=== PATIENT | male | born 1970 | race Two or more races ===

== ENCOUNTER 2016-11-23 18:44 | Emergency (ER) | payer OTHER ==
[2016-11-23 19:03] VITALS: BP 130/75
[2016-11-23] MEDS ORDERED: LIDOCAINE 5% (700 MG) TRANSDERMAL ADH..PATCH TP ONE (19:34)
[2016-11-23] MEDS ORDERED: NAPROXEN 250 MG TABLET PO ONE (19:34)
--- NOTE | 2016-11-23 19:35 | ER Document Report ---
ED General Pain - General Chief Complaint: Back Pain Stated Complaint: BACK, HEAD PAIN, NUMBNESS Time Seen by Provider: 11/23/16 19:13 Notes: The patient is a 46-year-old male, past medical history chronic back pain, L3 radiculopathy, DDD, peripheral neuropathy, presents with several weeks of worsening bilateral back spasm and tingling into his left toe. He saw his neurologist who performed acupuncture before the symptoms all started. He has a copy of his MRI of his C-spine and lumbar spine, which showed degenerative disc disease and L3 radiculopathy. Patient denies saddle anesthesia, change in bowel or bladder, history of IVDA, fevers, chest pain, nausea or vomiting. TRAVEL OUTSIDE OF THE [place] IN LAST 30 DAYS: No - Related Data Allergies/Adverse Reactions: acetaminophen [From Tylenol] Allergy (Unknown, Verified 11/23/16 19:00) morphine [Morphine] Allergy (Unknown, Verified 11/23/16 19:00) Past Medical History - General Information source: Patient - Social History Smoking Status: Current Every Day Smoker Family History: None Patient has suicidal ideation: No Patient has homicidal ideation: No Renal/ Medical History: Denies: Hx Peritoneal Dialysis Musculoskeltal Medical History: Reports Hx Musculoskeletal Deformity, Reports Hx Musculoskeletal Trauma - Immunizations Immunizations up to date: Yes Hx Diphtheria, Pertussis, Tetanus Vaccination: Yes Review of Systems - Review of Systems Notes: REVIEW OF SYSTEMS: CONSTITUTIONAL: -fevers, -chills EENT: -eye pain, -difficulty swallowing, -nasal congestion CARDIOVASCULAR:-chest pain, -syncope. RESPIRATORY: -cough, -SOB GASTROINTESTINAL: -abdominal pain, - nausea, -vomiting, -diarrhea GENITOURINARY: -dysuria, -hematuria MUSCULOSKELETAL: +back pain, -neck pain SKIN: -rash or skin lesions. HEMATOLOGIC: -easy bruising or bleeding. LYMPHATIC: -swollen, enlarged glands. NEUROLOGICAL: -altered mental status or loss of consciousness, -headache, + peripheral neuropathy PSYCHIATRIC: -anxiety, -depression. ALL OTHER SYSTEMS REVIEWED AND NEGATIVE. Physical Exam - Vital signs Vitals: Temp Pulse Resp BP Pulse Ox 98 F 84 18 130/75 H 100 11/23/16 19:00 11/23/16 19:00 11/23/16 19:00 11/23/16 19:00 11/23/16 19:00 - Notes Notes: PHYSICAL EXAMINATION: GENERAL: Well-appearing, well-nourished and in no acute distress. HEAD: Atraumatic, normocephalic. EYES: Pupils equal round and reactive to light, extraocular movements intact, sclera anicteric, conjunctiva are normal. ENT: nares patent, oropharynx clear without exudates. Moist mucous membranes. NECK: Normal range of motion, supple without lymphadenopathy LUNGS: Breath sounds clear to auscultation bilaterally and equal. No wheezes rales or rhonchi. HEART: Regular rate and rhythm without murmurs ABDOMEN: Soft, nontender, normoactive bowel sounds. No guarding, no rebound. No masses appreciated. EXTREMITIES: Normal range of motion, no pitting or edema. No cyanosis. Strong distal pulses. BACK: tenderness over right lower paraspinal muscles, no midline tenderness NEUROLOGICAL: Cranial nerves grossly intact. Normal speech. Normal motor exams. PSYCH: Normal mood, normal affect. SKIN: Warm, Dry, normal turgor, no rashes or lesions noted. Course - Re-evaluation Re-evalutation: Patient has no red flag signs for low back pain at this time. He has a copy of his MRI results which are consistent with his exam findings. He sees a neurologist and is scheduled for pain management at the [facility]. No emergent condition exists at this time. Given return precautions and he understands. - Vital Signs Vital signs: Temp Pulse Resp BP Pulse Ox 98 F 84 18 130/75 H 100 11/23/16 19:00 11/23/16 19:00 11/23/16 19:00 11/23/16 19:00 11/23/16 19:00 Discharge - Discharge Clinical Impression: Radicular pain Chronic back pain Qualifiers: Back pain location: low back pain Back pain laterality: bilateral Sciatica presence: with sciatica Sciatica laterality: sciatica of right side Qualified Code(s): M54.41 - Lumbago with sciatica, right side Condition: Stable Disposition: HOME, SELF-CARE Additional Instructions: LOW BACK PAIN: Three out of every four people will have an episode of disabling back pain during their lifetime. Most commonly the pain is due to straining of the muscles and ligaments in the low back. Usual treatment includes: (1) Rest on a firm surface. Avoid lying on your stomach. (2) Ice pack the painful area. After a few days, gentle heat may be used intermittently to relax the area, or ice packs can be continued. (3) Medication may be needed -- muscle relaxers and antiinflammatory medicines are commonly used. (4) As the back improves, exercises are prescribed to strengthen the back and abdominal muscles. Your doctor will advise you on the proper care for your back at each stage in your recovery. You may be better in a few days -- or healing may take several weeks. If new symptoms of a "herniated disc" (radiation of pain, numbness, or tingling down the back of the leg or weakness in the leg) occur, you should be re-examined. Further testing may be necessary. ICE PACKS: Apply ice packs frequently against the painful area. Many different schedules are recommended, such as "20 minutes on, 20 minutes off" or "one hour ice, two hours rest." If you need to work, you may need to go longer between ice treatments. You should plan to have the area ice packed AT LEAST one fourth of the time. The ice should be applied over the wrap, tape, or splint, or over a layer of cloth -- not directly against the skin. Some ice bags have a built-in cloth and can be put directly on the skin. WARM PACKS: After approximately two days, apply gentle heat (such as a heating pad or hot water bottle) for about 20 to 30 minutes about every two hours -- at least four times daily. Warmth and elevation will help you make a more rapid recovery , and will ease the pain considerably. Do not use HOT heat, and never apply heat for longer than 30 minutes. The continuous heat can invisibly damage skin and muscles -- even when no burn is seen on the surface. Damaged muscles can make you MORE sore. FOLLOW-UP CARE: If you have been referred to a physician for follow-up care, call the physician s office for an appointment as you were instructed or within the next two days. If you experience worsening or a significant change in your symptoms, notify the physician immediately or return to the Emergency Department at any time for re-evaluation. Prescriptions: Lidocaine [Lidoderm 5% (700 mg) Transdermal Patch] 1 patch TP DAILY #30 adh..patch
== END 2016-11-23 20:11 | disposition home or self-care (01) ==
LOC: ER 18:44
DX: M54.41 Lumbago with sciatica, right side (principal); G89.29 Other chronic pain; M54.9 Dorsalgia, unspecified; F17.200 Nicotine dependence, unspecified, uncomplicated; Z88.6 Allergy status to analgesic agent
CPT/HCPCS: 99283

== ENCOUNTER 2018-01-26 19:20 | Emergency (ER) | payer OTHER ==
[2018-01-26] MEDS ORDERED: ONDANSETRON HCL INJ/PF 4 MG/2 ML SDV IV ONE (20:47)
[2018-01-26] MEDS ORDERED: FENTANYL CITRATE INJ/PF 100 MCG/2 ML AMPUL IV ONE (20:47)
[2018-01-26] MEDS ORDERED: NORMAL SALINE 1000 ML 1,000 ML IV ONE ×2 (20:47→23:49)
--- NOTE | 2018-01-26 20:49 | ER Document Report ---
ED Medical Screen (RME) - General Chief Complaint: Nausea/Vomiting/Diarrhea Stated Complaint: VOMITING,DIARRHEA Time Seen by Provider: 01/26/18 20:47 Notes: 47 years old male presents today with 3 day history of nausea vomiting diarrhea many times. Now having general body aches and pain chills and fever. Denies any cough. Denies any other constitutional symptoms. TRAVEL OUTSIDE OF THE [place] IN LAST 30 DAYS: No - Related Data Allergies/Adverse Reactions: acetaminophen [From Tylenol] Allergy (Unknown, Verified 11/23/16 19:00) morphine [Morphine] Allergy (Unknown, Verified 11/23/16 19:00) Past Medical History Renal/ Medical History: Denies: Hx Peritoneal Dialysis Musculoskeltal Medical History: Reports Hx Musculoskeletal Deformity, Reports Hx Musculoskeletal Trauma - Immunizations Immunizations up to date: Yes Hx Diphtheria, Pertussis, Tetanus Vaccination: Yes Physical Exam - Vital signs Vitals: Temp Pulse Resp BP Pulse Ox 98.6 F 61 17 140/79 H 96 01/26/18 19:36 01/26/18 19:36 01/26/18 19:36 01/26/18 19:36 01/26/18 19:36 Course - Vital Signs Vital signs: Temp Pulse Resp BP Pulse Ox 98.6 F 61 17 140/79 H 96 01/26/18 19:36 01/26/18 19:36 01/26/18 19:36 01/26/18 19:36 01/26/18 19:36 Doctor's Discharge - Discharge Referrals: MARIA ELENA AGUILERA FNP [Primary Care Provider] - Follow up as needed
[2018-01-26 21:19] LABS: ABSOLUTE LYMPHOCYTES (AUTO) 1.7 10^3/uL (0.5-4.7); ABSOLUTE MONOCYTES (AUTO) 1.2 10^3/uL (0.1-1.4); ABSOLUTE NEUT (AUTO) 12.6 10^3/uL (1.7-8.2); BASOPHILS % (AUTO) 0.3 % (0-2); HEMATOCRIT 47.5 % (37.9-51.0); HEMOGLOBIN 16.3 g/dL (13.5-17.0); LYMPHOCYTES % (AUTO) 10.8 % (13-45); MEAN CORPUSCULAR HEMOGLOBIN 30.2 pg (27.0-33.4); MEAN CORPUSCULAR HGB CONC 34.2 g/dL (32.0-36.0); MEAN CORPUSCULAR VOLUME 88 fl (80-97); PLATELET COUNT 272 10^3/uL (150-450); RED BLOOD COUNT 5.37 10^6/uL (4.35-5.55); RED CELL DISTRIBUTION WIDTH 13.9 % (11.5-14.0); SEGMENTED NEUTROPHILS % (AUTO) 80.9 % (42-78); TOTAL CELLS COUNTED % (AUTO) 100 %; WHITE BLOOD COUNT 15.6 10^3/uL (4.0-10.5)
[2018-01-26 21:36] LABS: ALANINE AMINOTRANSFERASE 27 U/L (21-72); ALKALINE PHOSPHATASE 63 U/L (38-126); ANION GAP 16 (5-19); ASPARTATE AMINO TRANSFERASE 18 U/L (17-59); BILIRUBIN,DIRECT 0.4 mg/dL (0.0-0.4); BILIRUBIN,TOTAL 0.6 mg/dL (0.2-1.3); BLOOD UREA NITROGEN 17 mg/dL (7-20); CALCIUM 10.3 mg/dL (8.4-10.2); CARBON DIOXIDE 29 mmol/L (22-30); CHLORIDE 100 mmol/L (98-107); GLUCOSE 124 mg/dL (75-110); LIPASE 125.2 U/L (23-300); SODIUM 145.3 mmol/L (137-145); TOTAL PROTEIN 8.7 g/dL (6.3-8.2)
[2018-01-26] MEDS ORDERED: FENTANYL CITRATE INJ/PF 100 MCG/2 ML AMPUL IV PRN (21:45)
[2018-01-26] MEDS ORDERED: CLONIDINE 0.1 MG/24 HR PATCH.TDWK TD ONE (21:47)
--- NOTE | 2018-01-26 21:48 | ER Document Report ---
ED General - General Chief Complaint: Nausea/Vomiting/Diarrhea Stated Complaint: VOMITING,DIARRHEA Time Seen by Provider: 01/26/18 20:47 Notes: Patient is a 47-year-old male with a past medical history of continuous opiate dependence through chronic pain management who presents with 3 days of nausea, vomiting and generalized abdominal cramping. The patient states that he has been having difficulty tolerating oral intake secondary to the degree of vomiting. He notes that attempts at eating or drinking seem to worsen his nausea and generalized abdominal cramping. Symptoms have been worsening since onset. Nothing improves his symptoms. He does note that the symptoms started approximately 12 hours after he took his last dose of oxycodone. He ran out early on this medication apparently due to taking more than was prescribed "because I fell down stairs". He denies history of opiate withdrawal in the past. No known sick contacts. No fever. He does note associated generalized body aches and pains. He did see his pain management doctor regarding these concerns but was not given any additional narcotics. TRAVEL OUTSIDE OF THE [place] IN LAST 30 DAYS: No - Related Data Allergies/Adverse Reactions: acetaminophen [From Tylenol] Allergy (Unknown, Verified 11/23/16 19:00) morphine [Morphine] Allergy (Unknown, Verified 11/23/16 19:00) Past Medical History - General Information source: Patient - Social History Smoking Status: Current Every Day Smoker Frequency of alcohol use: None Drug Abuse: None Lives with: Spouse/Significant other Family History: Reviewed & Not Pertinent Patient has suicidal ideation: No Patient has homicidal ideation: No Renal/ Medical History: Denies: Hx Peritoneal Dialysis Musculoskeletal Medical History: Reports Hx Musculoskeletal Deformity, Reports Hx Musculoskeletal Trauma - Immunizations Immunizations up to date: Yes Hx Diphtheria, Pertussis, Tetanus Vaccination: Yes Review of Systems - Review of Systems Notes: Constitutional: Negative for fever. HENT: Negative for sore throat. Eyes: Negative for visual changes. Cardiovascular: Negative for chest pain. Respiratory: Negative for shortness of breath. Gastrointestinal: Positive for abdominal cramping, vomiting and diarrhea Genitourinary: Negative for dysuria. Musculoskeletal: Positive for chronic low back pain Skin: Negative for rash. Neurological: Negative for headaches, weakness or numbness. 10 point ROS negative except as marked above and in HPI. Physical Exam - Vital signs Vitals: Temp Pulse Resp BP Pulse Ox 98.6 F 61 17 140/79 H 96 01/26/18 19:36 01/26/18 19:36 01/26/18 19:36 01/26/18 19:36 01/26/18 19:36 Interpretation: Normal Notes: PHYSICAL EXAMINATION: GENERAL: Well-appearing, well-nourished and in no acute distress. HEAD: Atraumatic, normocephalic. EYES: Pupils equal round and reactive to light, extraocular movements intact, sclera anicteric, conjunctiva are normal. ENT: nares patent, oropharynx clear without exudates. Moderately dry mucous membranes. NECK: Normal range of motion, supple without lymphadenopathy LUNGS: Breath sounds clear to auscultation bilaterally and equal. No wheezes rales or rhonchi. HEART: Regular rate and rhythm without murmurs ABDOMEN: Soft, nontender, normoactive bowel sounds. No guarding, no rebound. No masses appreciated. EXTREMITIES: Normal range of motion, no pitting or edema. No cyanosis. NEUROLOGICAL: No focal neurological deficits. Moves all extremities spontaneously and on command. PSYCH: Normal mood, normal affect. SKIN: Warm, Dry, normal turgor, no rashes or lesions noted. Course - Re-evaluation Re-evalutation: 01/26/18 21:47 Patient presents with 3 days of nausea, vomiting, diarrhea, generalized abdominal pain. He has been off of his chronic opiates for 3 days and effectively immediately after he ran out of these medications. On abdominal examination he has no focal abdominal tenderness, rebound or guarding. He does complain of most of his tenderness being in the upper abdomen. His laboratories show a nonspecific leukocytosis but are otherwise unremarkable without evidence of pancreatitis, biliary pathology, transaminitis. Very low clinical suspicion for acute appendicitis, bowel perforation or bowel obstruction based on exam and history. Clinical history is most consistent with opiate withdrawal. An alternative consideration would be an infectious etiology although there are no known sick contacts. Will obtain a right upper quadrant ultrasound to further exclude an acute cholecystitis as patient is complaining of upper abdominal pain, two-view of the abdomen to further evaluate for any evidence of perforation given his complaint of generalized abdominal pain plan for rehydration and nausea control. 01/26/18 22:35 Patient's prior quadrant ultrasound and to the abdomen are unremarkable. Repeat abdominal exam is without any focal tenderness, rebound or guarding and remains quite reassuring. His vitals continue to be reassuring with a heart rate of 51, blood pressure 120 on 79. At this time point the exact etiology of his symptoms is uncertain but appears most probably be related to opiate withdrawal as patient has had some improvement after receiving opiates here in the emergency department. I have encouraged him to follow-up with his pain management doctor in regards to his opiate prescriptions. I have also emphasized the degree of diagnostic uncertainty with the patient and emphasized the need for immediate return should he fail to improve or worsen. At this time will discharge with return precautions and follow-up recommendations. Verbal discharge instructions given a the bedside and opportunity for questions given. Medication warnings reviewed. Patient is in agreement with this plan and has verbalized understanding of return precautions and the need for primary care follow-up in the next 24-72 hours. - Vital Signs Vital signs: Temp Pulse Resp BP Pulse Ox 98.6 F 61 12 136/89 H 96 01/26/18 19:36 01/26/18 19:36 01/27/18 00:26 01/27/18 00:26 01/26/18 23:03 - Laboratory Result Diagrams: 01/26/18 21:07 01/26/18 21:07 Laboratory results interpreted by me: 01/26/18 01/26/18 21:07 21:07 WBC 15.6 H Seg Neutrophils % 80.9 H Lymphocytes % 10.8 L Absolute Neutrophils 12.6 H Sodium 145.3 H Glucose 124 H Calcium 10.3 H Total Protein 8.7 H - Diagnostic Test Radiology reviewed: Image reviewed, Reports reviewed Radiology results interpreted by me: 01/26/18 22:36 Abdomen 2 view: No evidence of obstruction or perforation Discharge - Discharge Clinical Impression: Nausea vomiting and diarrhea, Generalized abdominal pain Opiate dependence Qualifiers: Substance use status: uncomplicated Qualified Code(s): F11.20 - Opioid dependence, uncomplicated Condition: Good Disposition: HOME, SELF-CARE Additional Instructions: The exact cause of her symptoms is unclear but may be due to either a viral infection or withdrawing from the opiate pain medications which you are currently out of. You can take [id number] loperamide also known as Imodium as needed for diarrhea per box instructions. Continue to stay hydrated with plenty of solution such as Gatorade or Pedialyte. You are being prescribed Zofran to take as needed for nausea and vomiting. Please return if you develop severe abdominal pain, pass out, become unable to tolerate any oral fluids for 12 more hours, or any other symptoms that are concerning to you. Referrals: MARIA ELENA AGULIERA FNP [Primary Care Provider] - Follow up tomorrow
--- NOTE | 2018-01-26 22:32 | RADIOLOGY REPORT (SQ) ---
EXAM DESCRIPTION: U/S ABDOMEN LIMITED W/O DOP COMPLETED DATE/TIME: 01/26/2018 10:22 pm REASON FOR STUDY: upper abdominal pain COMPARISON: None. TECHNIQUE: Dynamic and static grayscale images acquired of the abdomen and recorded on PACS. Osorioo lima selected color Doppler and spectral images recorded. LIMITATIONS: None. FINDINGS: PANCREAS: No obvious masses. Not well seen. LIVER: No masses. Normal size. Slightly increased echogenicity. LIVER VASCULATURE: Normal directional flow of the main portal vein and hepatic veins. GALLBLADDER: No stones. Normal wall thickness. No pericholecystic fluid. ULTRASOUND-DETECTED LOU'S SIGN: Negative. INTRAHEPATIC DUCTS AND COMMON DUCT: CBD and intrahepatic ducts normal caliber. No filling defects. INFERIOR VENA CAVA: Normal flow. AORTA: No aneurysm. The proximal aorta was not seen. RIGHT KIDNEY: Normal size. Normal echogenicity. No solid or suspicious masses. No hydronephrosis. No calcifications. PERITONEAL AND RIGHT PLEURAL SPACE: No ascites or effusions. OTHER: No other significant findings. IMPRESSION: There is some degree of fatty infiltration of the liver. No acute abnormality is seen. TECHNICAL DOCUMENTATION: JOB ID: [id number] [employer]- All Rights Reserved Reading location - IP/workstation name: [email or web address]
--- NOTE | 2018-01-26 22:33 | RADIOLOGY REPORT (SQ) ---
EXAM DESCRIPTION: ABDOMEN 2 VIEWS COMPLETED DATE/TIME: 01/26/2018 10:23 pm REASON FOR STUDY: upper abdominal pain COMPARISON: None. NUMBER OF VIEWS: Two views. TECHNIQUE: Supine and erect/decubitus radiographic images of the abdomen acquired. LIMITATIONS: None. FINDINGS: FREE AIR: None. No abnormal gas collections. LUNG BASES: Clear. BOWEL GAS PATTERN: Nonobstructive pattern. No dilated loops or air fluid levels. CALCIFICATIONS: No suspicious calcifications. SOFT TISSUES: No gross mass or suggestion of organomegaly. HARDWARE: None in the abdomen. BONES: No acute fracture. No worrisome bone lesions. OTHER: No other significant finding. IMPRESSION: NO RADIOGRAPHIC EVIDENCE FOR ACUTE ABDOMINAL DISEASE. TECHNICAL DOCUMENTATION: JOB ID: [id number] [employer]- All Rights Reserved Reading location - IP/workstation name: [email or web address]
[2018-01-26] MEDS ORDERED: ONDANSETRON ODT 4 MG TAB (6 TAB/ER DISP) PO PRN (22:37)
[2018-01-26] MEDS ORDERED: OXYCODONE HCL IR 5 MG TABLET PO ONE (23:17)
[2018-01-27 00:28] VITALS: BP 136/89
== END 2018-01-27 00:40 | disposition home or self-care (01) ==
LOC: ER 19:20
DX: R11.2 Nausea with vomiting, unspecified (principal); R19.7 Diarrhea, unspecified; R10.84 Generalized abdominal pain; F11.20 Opioid dependence, uncomplicated; M54.5 Low back pain; G89.29 Other chronic pain; F17.200 Nicotine dependence, unspecified, uncomplicated
CPT/HCPCS: 99285; 96361; 96374; 36415; 83690; 85025; 80053; 74019; 76705; J2405; J7030

== ENCOUNTER 2018-01-28 14:13 | Emergency (ER) | payer OTHER ==
[2018-01-28] MEDS ORDERED: ONDANSETRON HCL INJ/PF 4 MG/2 ML SDV IV ONE (14:55)
[2018-01-28] MEDS ORDERED: NORMAL SALINE 1000 ML 1,000 ML IV ONE ×2 (14:55→16:51)
--- NOTE | 2018-01-28 14:57 | ER Document Report ---
ED Medical Screen (RME) - General Chief Complaint: Nausea/Vomiting Stated Complaint: DEHYDRATED Time Seen by Provider: 01/28/18 14:46 TRAVEL OUTSIDE OF THE [place] IN LAST 30 DAYS: No - HPI Notes: 01/28/18 14:56 Nausea vomiting for 5 days unable to tolerate p.o. recently seen diagnosed with opiate withdrawal as the patient ran out of his pain medication due to a recent fall. Patient has Chiari malformation along with pins and rods down his legs according to the patient. - Related Data Allergies/Adverse Reactions: acetaminophen [From Tylenol] Adverse Reaction (Unknown, Verified 01/28/18 14:50) Past Medical History Renal/ Medical History: Denies: Hx Peritoneal Dialysis Musculoskeltal Medical History: Reports Hx Musculoskeletal Deformity, Reports Hx Musculoskeletal Trauma - Immunizations Immunizations up to date: Yes Hx Diphtheria, Pertussis, Tetanus Vaccination: Yes Review of Systems - Review of Systems Constitutional: Other - Nausea vomiting diarrhea Physical Exam - Vital signs Vitals: Temp Pulse Resp BP Pulse Ox 98.4 F 44 L 16 145/85 H 100 01/28/18 14:26 01/28/18 14:01/28/18 14:01/28/18 14:01/28/18 14:26 - Respiratory Respiratory status: No respiratory distress Chest status: Nontender Breath sounds: Normal Chest palpation: Normal Course - Vital Signs Vital signs: Temp Pulse Resp BP Pulse Ox 98.4 F 44 L 16 145/85 H 100 01/28/18 14:26 01/28/18 14:26 01/28/18 14:01/28/18 14:01/28/18 14:26 Doctor's Discharge - Discharge Referrals: MARIA ELENA AGUILERA FNP [Primary Care Provider] - Follow up as needed
[2018-01-28 15:46] LABS: ABSOLUTE LYMPHOCYTES (AUTO) 2.1 10^3/uL (0.5-4.7); ABSOLUTE NEUT (AUTO) 7.2 10^3/uL (1.7-8.2); BASOPHILS % (AUTO) 0.3 % (0-2); EOSINOPHILS % (AUTO) 0.1 % (0-6); HEMATOCRIT 46.5 % (37.9-51.0); HEMOGLOBIN 15.9 g/dL (13.5-17.0); LYMPHOCYTES % (AUTO) 20.4 % (13-45); MEAN CORPUSCULAR HEMOGLOBIN 30.4 pg (27.0-33.4); MEAN CORPUSCULAR HGB CONC 34.1 g/dL (32.0-36.0); MEAN CORPUSCULAR VOLUME 89 fl (80-97); MONOCYTES % (AUTO) 9.3 % (3-13); PLATELET COUNT 233 10^3/uL (150-450); RED BLOOD COUNT 5.22 10^6/uL (4.35-5.55); RED CELL DISTRIBUTION WIDTH 13.5 % (11.5-14.0); SEGMENTED NEUTROPHILS % (AUTO) 69.9 % (42-78); TOTAL CELLS COUNTED % (AUTO) 100 %; WHITE BLOOD COUNT 10.4 10^3/uL (4.0-10.5)
[2018-01-28 15:54] LABS: APPEARANCE,URINE SLIGHTLY-CLOUDY; BILIRUBIN,URINE NEGATIVE (NEGATIVE); COLOR,URINE AMBER; GLUCOSE, URINE NEGATIVE (NEGATIVE); KETONES,URINE 80 mg/dL (NEGATIVE); LEUKOCYTE ESTERASE,URINE NEGATIVE (NEGATIVE); NITRITE,URINE NEGATIVE (NEGATIVE); PROTEIN,URINE 30 mg/dL (NEGATIVE); URINE SPECIFIC GRAVITY 1.032
[2018-01-28 16:03] LABS: URINE AMPHETAMINES SCREEN NEGATIVE; URINE BARBITURATES SCREEN NEGATIVE; URINE BENZODIAZEPINES SCREEN NEGATIVE; URINE COCAINE SCREEN NEGATIVE; URINE MARIJUANA (THC) SCREEN NEGATIVE; URINE METHADONE SCREEN NEGATIVE; URINE PHENCYCLIDINE SCREEN NEGATIVE
[2018-01-28 16:05] LABS: ALANINE AMINOTRANSFERASE 22 U/L (21-72); ALBUMIN 4.6 g/dL (3.5-5.0); ALKALINE PHOSPHATASE 53 U/L (38-126); ANION GAP 15 (5-19); ASPARTATE AMINO TRANSFERASE 16 U/L (17-59); BILIRUBIN,DIRECT 0.3 mg/dL (0.0-0.4); BILIRUBIN,TOTAL 0.6 mg/dL (0.2-1.3); BLOOD UREA NITROGEN 16 mg/dL (7-20); CALCIUM 10.2 mg/dL (8.4-10.2); CARBON DIOXIDE 27 mmol/L (22-30); CHLORIDE 102 mmol/L (98-107); GLUCOSE 100 mg/dL (75-110); LIPASE 174.3 U/L (23-300); POTASSIUM 4.1 mmol/L (3.6-5.0); SODIUM 144.2 mmol/L (137-145); TOTAL PROTEIN 8.3 g/dL (6.3-8.2)
--- NOTE | 2018-01-28 16:23 | ER Document Report ---
ED General - General Chief Complaint: Nausea/Vomiting Stated Complaint: NAUSEA/VOMITING Time Seen by Provider: 01/28/18 14:46 TRAVEL OUTSIDE OF THE [place] IN LAST 30 DAYS: No - HPI Patient complains to provider of: vomiting Onset: Last week Notes: Patient presents to the emergency room for nausea and vomiting. He has not had opiate pain medication in the last 5 days and is concerned he is in opiate withdrawal. He states he has a chronic prescription for neck and back pain however he has been taking more of his medication because he had a recent fall. He cannot refill his oxycodone until 02/04/18. Patient reports feeling nauseous , shaky, fatigued and generally ill. He also endorses diffuse abdominal crampiness. The abdominal pain is worse with eating and relieved with nothing. He has had previous visits in the emergency room for the same symptoms and denies any change in his symptoms. He was prescribed Zofran previously and states that it gives him no relief. He states he has not had anything to eat and 5 days and every time he tries to drink something he throws the medication back up. He has not contacted his primary care provider. - Related Data Allergies/Adverse Reactions: acetaminophen [From Tylenol] Adverse Reaction (Unknown, Verified 01/28/18 14:50) Past Medical History - Social History Smoking Status: Current Every Day Smoker Family History: Reviewed & Not Pertinent Patient has suicidal ideation: No Patient has homicidal ideation: No Renal/ Medical History: Denies: Hx Peritoneal Dialysis Musculoskeletal Medical History: Reports Hx Musculoskeletal Deformity, Reports Hx Musculoskeletal Trauma Other: Chiari malformation Other: Orthopedic surgeries - Immunizations Immunizations up to date: Yes Hx Diphtheria, Pertussis, Tetanus Vaccination: Yes Review of Systems - Review of Systems Notes: REVIEW OF SYSTEMS: CONSTITUTIONAL : Denies fever, chills, or sweats. Denies recent illness. EENT: Denies eye, ear, throat, or mouth pain or symptoms. Denies nasal or sinus congestion. CARDIOVASCULAR: Denies chest pain. RESPIRATORY: Denies cough, cold, or chest congestion. Denies shortness of breath, difficulty breathing, or wheezing. GASTROINTESTINAL: abdominal pain, nausea, vomiting. Denies diarrhea. Denies constipation. GENITOURINARY: Denies difficulty urinating, painful urination and urinary frequency. MUSCULOSKELETAL: Denies neck or back pain or joint pain. SKIN: Denies rash or skin lesions. HEMATOLOGIC : Denies easy bruising or bleeding. LYMPHATIC: Denies swollen, enlarged glands. NEUROLOGICAL: Denies altered mental status. Denies headache. Denies weakness or paralysis. Denies problems with gait or speech. Denies sensory or motor loss. PSYCHIATRIC: Denies anxiety or depression. ALL OTHER SYSTEMS REVIEWED AND NEGATIVE. Physical Exam - Vital signs Vitals: Temp Pulse Resp BP Pulse Ox 98.4 F 44 L 16 145/85 H 100 01/28/18 14:26 01/28/18 14:26 01/28/18 14:26 01/28/18 14:26 01/28/18 14:26 - Notes Notes: PHYSICAL EXAMINATION: GENERAL: Well-appearing, well-nourished and in no acute distress. HEAD: Atraumatic, normocephalic. EYES: Pupils equal round and reactive to light, extraocular movements intact, conjunctiva are normal. ENT: nares patent, oropharynx clear without exudates. Moist mucous membranes. NECK: Normal range of motion, supple without lymphadenopathy LUNGS: Breath sounds clear to auscultation bilaterally and equal. No wheezes rales or rhonchi. HEART: Regular rate and rhythm without murmurs ABDOMEN: Soft, nontender, normoactive bowel sounds. No guarding, no rebound. No masses appreciated. EXTREMITIES: Normal range of motion, no pitting edema. No cyanosis. NEUROLOGICAL: No focal neurological deficits. Moves all extremities spontaneously and on command. PSYCH: Normal mood, normal affect. SKIN: Warm, Dry, normal turgor, no rashes or lesions noted. Course - Re-evaluation Re-evalutation: 01/28/18 16:22 Vitals reviewed and stable. Patient given IV hydration and Zofran. Lab work shows normal renal function and electrolytes. Patient has not had any emesis in the room. His symptoms are related to opiate withdrawal. He will be given a refill of his Zofran and a prescription for Phenergan for symptomatic treatment at home. He is encouraged to call his primary care physician for follow-up in the next few days. Patient does express a desire to get off of chronic pain medications which he will discuss with his primary care physician as well. He was encouraged to return for any new or worsening symptoms. He was discharged home in stable condition. 01/28/18 18:11 - Vital Signs Vital signs: Temp Pulse Resp BP Pulse Ox 98.4 F 52 L 16 148/80 H 100 01/28/18 14:26 01/28/18 16:51 01/28/18 14:26 01/28/18 16:51 01/28/18 14:26 - Laboratory Result Diagrams: 01/28/18 15:21 01/28/18 15:21 Laboratory results interpreted by me: 01/28/18 01/28/18 15:21 15:21 AST 16 L Total Protein 8.3 H Urine Protein 30 H Urine Ketones 80 H Urine Urobilinogen 2.0 H Discharge - Discharge Clinical Impression: Opiate withdrawal, Nausea and vomiting Condition: Good Disposition: HOME, SELF-CARE Instructions: Antinausea Medication ([facility]), Vomiting ([facility]) Prescriptions: Ondansetron [Zofran Odt 4 mg Tablet] 1 tab PO Q4H PRN #15 tab.rapdis PRN Reason: For Nausea/Vomiting Promethazine HCl [Phenergan 25 mg Tablet] 1 tab PO Q6H PRN #15 tablet PRN Reason: Referrals: MARIA ELENA AGUILERA FNP [Primary Care Provider] - Follow up as needed
[2018-01-28] MEDS ORDERED: ONDANSETRON ODT 4 MG TAB (6 TAB/ER DISP) PO PRN (18:44)
[2018-01-28 18:51] VITALS: BP 139/79
== END 2018-01-28 18:49 | disposition home or self-care (01) ==
LOC: ER 14:13
DX: F11.23 Opioid dependence with withdrawal (principal); T40.2X5A Adverse effect of other opioids, initial encounter; Y92.9 Unspecified place or not applicable; R11.2 Nausea with vomiting, unspecified; M54.2 Cervicalgia; M54.9 Dorsalgia, unspecified; Z79.899 Other long term (current) drug therapy; F17.200 Nicotine dependence, unspecified, uncomplicated
CPT/HCPCS: 99283; 96361; 96374; 36415; 83690; 85025; 80053; 81001; 80307; J2405; J7030